=== PATIENT | female | born 1990 | race Caucasian/White ===

== ENCOUNTER 2017-09-09 13:51 | Outpatient (CLI) | payer OTHER | END 2017-09-09 13:52 | disposition home or self-care (01) | LOC: DTY/OP 13:51 | PROVIDERS: ATTEND Surgery | DX: I10 Essential (primary) hypertension (principal) | CPT/HCPCS: 97802 ==

== ENCOUNTER 2017-10-15 09:32 | Outpatient (CLI) | payer OTHER ==
[2017-10-15 10:42] LABS: #Eosinphils 0.1 thou/uL (0.0-0.7); #Lymphocytes 2.4 thou/uL (1.20-3.40); #Monocytes 0.5 thou/uL (0.11-0.59); #Neutrophils 4.4 thou/uL (1.40-6.50); %Basophils 0.5 % (0.0-1.0); %Eosinophils 1.8 % (0.0-10.0); %Lymphocytes 31.9 % (21.0-51.0); %Monocytes 6.3 % (0.0-10.0); %Neutrophils 59.5 % (42.0-75.0); Hemoglobin 17.7 g/dL (12.0-16.0); Mean Corpuscular HGB CONC 33.4 g/dL (32.0-36.0); Mean Corpuscular Volume 92.9 fl (81.0-99.0); Mean Platelet Volume 8.2 fL (7.4-10.4); Platelet Count 221 thou/uL (130-400); RBC Distribution Width 12.3 % (11.5-14.5); White Blood Cell (WBC) Count 7.4 thou/uL (4.8-10.8)
[2017-10-15 10:50] LABS: BHCG - Serum Negative (NEGATIVE); Pregs Control Background? CLEAR/WHITE (CLR/WHITE); Pregs Control Bar Appear? YES (CONTROL BAR)
[2017-10-15 10:54] LABS: Hemoglobin A1c 5.2 % (4.0-6.0)
[2017-10-15 11:12] LABS: ALT (SGPT) 48 U/L (8-55); AST (SGOT) 26 U/L (5-34); Albumin 4.3 g/dL (3.5-5.0); Alkaline Phosphatase 51 U/L (40-150); Anion Gap 14 mmol/L (10-20); BUN (Urea Nitrogen) 11 mg/dL (7.0-18.7); Bilirubin, Direct 0.4 mg/dL (0.1-0.3); Bilirubin, Total 0.8 mg/dL (0.2-1.2); Calc. Creatinine Clearance 0 mL/min (70-130); Calcium 9.6 mg/dL (7.8-10.44); Carbon Dioxide 20 mmol/L (22-29); Chloride 107 mmol/L (98-107); Estimated GFR-MDRD Greater than 90; Globulin 3.1 g/dL (2.4-3.5); Glucose 88 mg/dL (70-105); Potassium 3.7 mmol/L (3.5-5.1); Protein, Total 7.4 g/dL (6.0-8.3); Sodium 137 mmol/L (136-145)
--- NOTE | 2017-10-15 12:44 | RAD ---
CHEST TWO VIEWS: History: Pre-operative exam. Comparison: None. FINDINGS: Chest two views. Normal cardiac silhouette. Pulmonary vessels and hilum are normal. Costophrenic angl es are clear. No consolidation or mass. No pneumothorax or osseous abnormalities. IMPRESSION: No acute cardiopulmonary process. POS: KEO
--- NOTE | 2017-10-21 19:39 | EKG ---
Test Reason : Blood Pressure : / mmHG Vent. Rate : 065 BPM Atrial Rate : 065 BPM P-R Int : 164 ms QRS Dur : 116 ms QT Int : 402 ms P-R-T Axes : 034 073 055 degrees QTc Int : 418 ms Normal sinus rhythm with sinus arrhythmia Incomplete right bundle branch block Cannot rule out Anterior infarct , age undetermined Abnormal ECG No previous ECGs available Confirmed by JAVIER HUERTA (2) on 10/21/2017 7:39:01 PM Referred By: SHWETA Confirmed By:JAVIER HUERTA
== END 2017-10-15 09:33 | disposition home or self-care (01) ==
LOC: LABBT 09:32
PROVIDERS: ATTEND Surgery
DX: Z01.818 Encounter for other preprocedural examination (principal); E66.01 Morbid (severe) obesity due to excess calories
CPT/HCPCS: 71046; 80053; 80076; 83036; 84703; 85025; 93005; 93010

== ENCOUNTER 2017-10-15 10:00 | Inpatient (IN) | payer OTHER ==
[2017-10-21] MEDS ORDERED: CEFAZOLIN/Water 2 GM/20 ML SYRINGE ONE (06:06)
[2017-10-21] MEDS ORDERED: Heparin 5,000 UNITS/ML VIAL ONE (06:06)
[2017-10-21] MEDS ORDERED: Bupivacaine/Epinephrine 0.25% 30 ML VIAL ONE ×2 (06:31)
[2017-10-21] MEDS ORDERED: Fentanyl 100 MCG/2 ML VIAL ONE (06:42)
[2017-10-21] MEDS ORDERED: Famotidine/PF 20 mg/2ml Vial ONE (06:43)
[2017-10-21] MEDS ORDERED: Ondansetron HCl/PF 4 MG/2 ML Vial ONE ×2 (06:43→17:01)
[2017-10-21] MEDS ORDERED: HYDROmorphone 0.5 MG/0.5 ML SYRINGE ONE ×3 (06:43→09:39)
[2017-10-21] MEDS ORDERED: Scopolamine 1.5 mg/72 hour Patch ONE (07:12)
[2017-10-21] MEDS ORDERED: Midazolam HCl 2 mg/2 ml Vial ONE (07:12)
[2017-10-21] MEDS ORDERED: HYDROmorphone 2 MG/ML VIAL SLOW IVP PRN (08:35)
[2017-10-21] MEDS ORDERED: Promethazine HCl 25 MG/ML VIAL IM/IV PRN (08:35)
[2017-10-21] MEDS ORDERED: Meperidine HCl/PF 25 MG/ML VIAL SLOW IVP PRN (08:35)
[2017-10-21] MEDS ORDERED: Ondansetron HCl/PF 4 MG/2 ML Vial IVP PRN ×2 (08:35→09:03)
--- NOTE | 2017-10-21 08:53 | OP ---
DATE OF PROCEDURE: 10/21/2017 PREOPERATIVE DIAGNOSIS: Morbid obesity. POSTOPERATIVE DIAGNOSES: Morbid obesity. PROCEDURE: Laparoscopic sleeve gastrectomy with EGD. [place] staple line reinforcements and 38 [place] bougie. SURGEON: Dr. Mao Huang ANESTHESIA: General. ESTIMATED BLOOD LOSS: Minimal. COMPLICATIONS: None. SPECIMEN: Stomach. FINDINGS: Small hiatal hernia. TECHNIQUE: The patient was taken to the operating room and placed supine on the table. After genera l anesthetic was obtained, the abdomen is prepped and draped in a sterile fashion. Her arms and legs have been double strapped to bariatric table. Left subcostal 5-mm Optiview trocar was placed in the usual fashion without injury. High-flow pneumoperitoneum was obtained. Left and right abdominal 12 -mm ports as well as a right subcostal 5-mm port were placed under direct visualization. A 5 mm inci elena made at the xiphoid. The Nathansen was used to raise the liver off the GE junction. Short eunice rics were taken down for a distance of 5 cm proximal to the pylorus. The angle of His left pat was completely dissected. There was evidence of a hiatal hernia, so the gastrohepatic ligament was opene d. There was no replaced hepatic artery. Dissection was taken up into the mediastinum along the med ial aspect of the right pat. Circumferential dissection of the esophagus was performed. There is a small hiatal hernia. The GE junction was able to be brought back into the abdominal cavity under no tension. An Ethibond suture and the tie knot system was used to place 1 suture posteriorly after th e 38 [place] bougie was placed with its tip left in the antrum of the stomach. Multiple loads of an E chelon stapling device was used to form the sleeve, this first was fired up at a distance of 6 cm pro ximal to the pylorus angled up towards the incisura. Multiple loads were then fired up along the carlie gie, stomach was completely transected at the angle of His. The stomach was removed from the left ab dominal incision. This fascial defect was closed using GraNee needle 0 Vicryl tie. All ports sites are infiltrated using local anesthetic. The bougie was removed and an EGD scope was passed via the e sophagus at this level of the duodenum without obstruction. There was no stricture at the incisura. The staple line is not bleeding. There is no air leakage through the staple line. There was no hilary dence of esophagitis, stricture or injury at the GE junction. EGD scope was used to decompress the s tomach, it was pulled and removed. The Nathansen retractor was removed under direct visualization wi thout bleeding. All ports were removed under direct visualization without bleeding. Pneumoperitoneu m was let down. All incisions were irrigated and closed using 4-0 Monocryl and Dermabond. The patie nt was en route to recovery in stable condition. All instrument counts, needle counts, and lap count s were correct.
[2017-10-21] MEDS ORDERED: diphenhydrAMINE 50 MG/ML VIAL IM PRN (09:03)
[2017-10-21] MEDS ORDERED: HYDROmorphone 10 mg/100 ml CADD IVPB PRN (09:03)
[2017-10-21] MEDS ORDERED: Naloxone HCl 0.4 mg/ml Vial IV PRN (09:03)
[2017-10-21] MEDS ORDERED: diphenhydrAMINE 25 MG CAP PO PRN (09:03)
[2017-10-21] MEDS ORDERED: Promethazine HCl 25 MG/ML VIAL IM PRN (09:03)
[2017-10-21] MEDS ORDERED: Zolpidem Tartrate 5 MG TAB PO PRN (09:03)
[2017-10-21] MEDS ORDERED: diphenhydrAMINE 50 MG/ML VIAL IVP PRN ×2 (09:03→10:32)
[2017-10-21] MEDS ORDERED: [UNRECOGNIZED DRUG - REMARK] FS PRN (09:15)
[2017-10-21] MEDS ORDERED: Promethazine HCl 25 MG/ML VIAL ONE (09:39)
[2017-10-21] MEDS ORDERED: Pantoprazole 40 MG VIAL IVP SCH ×2 (10:32→11:30)
[2017-10-21] MEDS ORDERED: hydrALAZINE 20 MG/ML VIAL SLOW IVP PRN (10:32)
[2017-10-21] MEDS ORDERED: Dextrose 5% in Water 1,000 ML IV PRN (10:32)
[2017-10-21] MEDS ORDERED: Dextrose 50% Abboject 50 ML SYRINGE SLOW IVP PRN (10:32)
[2017-10-21] MEDS: Acetaminophen 1,000 MG in Premix Bag 1 BAG IVPB SCH ×2 (13:46→17:54)
[2017-10-21 14:34] VITALS: BMI 40.6
[2017-10-21] MEDS: D5 1/2 NS w/20 mEq KCL 1,000 ML IV SCH ×2 (15:30→18:20)
[2017-10-21] MEDS ORDERED: Dexamethasone 20 MG/5 ML VIAL ONE (17:01)
[2017-10-21] MEDS ORDERED: Lidocaine 1% PF 5 ML VIAL ONE (17:01)
[2017-10-21] MEDS ORDERED: Ketorolac Tromethamine 30 MG/ML VIAL ONE (17:01)
[2017-10-21] MEDS ORDERED: PROPOFOL 200 MG/20 ML VIAL ONE (17:01)
[2017-10-21] MEDS ORDERED: Glycopyrrolate 0.2 MG/ML 5 ML SYRINGE ONE (17:01)
[2017-10-21] MEDS: Ondansetron HCl/PF 4 MG/2 ML Vial IVP PRN (17:54)
[2017-10-21] MEDS ORDERED: Enoxaparin Sodium 40 MG/0.4 ML SYRINGE SC SCH (21:00)
[2017-10-22] MEDS: Acetaminophen 1,000 MG in Premix Bag 1 BAG IVPB SCH (00:11)
[2017-10-22] MEDS: D5 1/2 NS w/20 mEq KCL 1,000 ML IV SCH ×3 (00:14→17:57)
[2017-10-22 04:22] LABS: #Lymphocytes 1.8 thou/uL (1.20-3.40); #Monocytes 1.1 thou/uL (0.11-0.59); #Neutrophils 9.5 thou/uL (1.40-6.50); %Basophils 0.2 % (0.0-1.0); %Lymphocytes 14.7 % (21.0-51.0); %Monocytes 8.6 % (0.0-10.0); %Neutrophils 76.4 % (42.0-75.0); Hemoglobin 15.7 g/dL (12.0-16.0); Mean Corpuscular HGB CONC 32.8 g/dL (32.0-36.0); Mean Corpuscular Hemoglobin 30.9 pg (27.0-31.0); Mean Corpuscular Volume 94.1 fl (81.0-99.0); Mean Platelet Volume 8.2 fL (7.4-10.4); Platelet Count 230 thou/uL (130-400); Red Blood Cell (RBC) Count 5.07 mill/uL (4.20-5.40); White Blood Cell (WBC) Count 12.4 thou/uL (4.8-10.8)
[2017-10-22 04:29] LABS: Anion Gap 6 mmol/L (10-20); BUN (Urea Nitrogen) 5 mg/dL (7.0-18.7); Calc. Creatinine Clearance 203 mL/min (70-130); Carbon Dioxide 27 mmol/L (22-29); Chloride 108 mmol/L (98-107); Estimated GFR-MDRD Greater than 90; Glucose 149 mg/dL (70-105); Potassium 4.3 mmol/L (3.5-5.1); Sodium 137 mmol/L (136-145)
[2017-10-22] MEDS: Ondansetron HCl/PF 4 MG/2 ML Vial IVP PRN (08:03)
[2017-10-22] MEDS ORDERED: Pantoprazole 40 MG VIAL IVP SCH (09:00)
--- NOTE | 2017-10-22 09:41 | RAD ---
SINGLE CONTRAST UPPER GI: HISTORY: Status post gastric sleeve procedure. Evaluate for enteric weight. FINDINGS: A 15 mL Gastrografin swallow was performed. The contrast passed from the esophagus into the gastric sleeve without difficulty. Contrast passed through the gastric sleeve and into the duodenum without difficulty. There is no evidence of leak of contrast from the gastric sleeve. IMPRESSION: Status post gastric sleeve procedure without evidence of complication. POS: LUZMARIA
[2017-10-22] MEDS: Hydrocodone-Acetamin 15 ML UDCUP PO PRN ×2 (09:53→17:18)
--- NOTE | 2017-10-22 09:55 | DIS ---
ADMIT DIAGNOSIS: Morbid obesity. DISCHARGE DIAGNOSIS: Morbid obesity. PROCEDURES: Laparoscopic sleeve gastrectomy by Dr. Huang without complication. CONDITION AT DISCHARGE: Improved. STAFF: Dr. Mao Huang. HOSPITAL COURSE: On postop day 1, the patient is only having mild nausea, minimal pain. She is afebr ile. Her vital signs are stable. Her upper GI is cleared of leakage or obstruction. She is discharged home. Prescriptions given for Lortab elixir, pantoprazole and Zofran. She will fo llow up with me in the office in 2 weeks.
[2017-10-22] MEDS: Promethazine HCl 25 MG/ML VIAL IM PRN ×2 (09:59→15:50)
[2017-10-22 16:53] VITALS: BP 129/84; TEMP 98.9
== END 2017-10-22 19:10 | disposition home or self-care (01) | DRG 621 ==
LOC: SURG A 10-21 05:34
PROVIDERS: ADMIT Surgery; ATTEND Surgery
PROC: 0DB64Z3 Excision of Stomach, Percutaneous Endoscopic Approach, Vertical (ICD-10-PCS; principal; 2017-10-21)
PROC: 0DJ08ZZ Inspection of Upper Intestinal Tract, Via Natural or Artificial Opening Endoscopic (ICD-10-PCS; 2017-10-21)
DX: E66.01 Morbid (severe) obesity due to excess calories (principal); K44.9 Diaphragmatic hernia without obstruction or gangrene; Z68.41 Body mass index [BMI] 40.0-44.9, adult
CPT/HCPCS: 36415; 74241; 80048; 85025; 88307; 88312; 94760; C9113; J0131; J1100; J1170; J1644; J1650; J1885; J2001; J2250; J2405; J2550; J2704; J3010; S0028